=== PATIENT | male | born 1995 | race Caucasian/White ===

== ENCOUNTER 2017-10-30 14:51 | Emergency (ER) | payer BC ==
[2017-10-30 15:37] VITALS: BP 136/74
--- NOTE | 2017-10-30 15:52 | UC ---
Throat Pain/Nasal Nahid HPI - HPI Summary HPI Summary: RIGHT JAW PAIN FOR 4-5 WEEKS ALSO FEELS A SMALL BUMP LOWER RIGHT INSIDE GUM LINE - History of Current Complaint Chief Complaint: UCGeneralIllness Stated Complaint: SOFT TISSUE Time Seen by Provider: 10/30/17 15:43 Hx Obtained From: Patient Onset/Duration: Sudden Onset, Lasting Weeks Pain Intensity: 0 Pain Scale Used: 0-10 Numeric Cough: None Associated Signs & Symptoms: Positive: Negative - Allergies/Home Medications Allergies/Adverse Reactions: Allergies Allergy/AdvReac Type Severity Reaction Status Date / Time No Known Allergies Allergy Verified 10/30/17 15:32 Home Medications: Home Medications Naproxen Sodium [Aleve] 4 tab PO Q12H PRN 10/30/17 [History Confirmed 10/30/17] PMH/Surg Hx/FS Hx/Imm Hx Previously Healthy: Yes - Surgical History Surgical History: None - Family History Known Family History: Positive: Unknown - Social History Occupation: Student Lives: With Family Alcohol Use: Occasionally Substance Use Type: Marijuana Substance Use Comment - Amount & Last Used: occasionall Smoking Status (MU): Never Smoked Tobacco - Immunization History Most Recent Tetanus Shot: unsure Review of Systems Constitutional: Negative Skin: Negative Eyes: Negative ENT: Negative, Other - RIGHT LOWER GUM MOUTH PAIN Respiratory: Negative Cardiovascular: Negative Gastrointestinal: Negative Genitourinary: Negative Motor: Negative Neurovascular: Negative Musculoskeletal: Negative Neurological: Negative Psychological: Negative Is Patient Immunocompromised?: No All Other Systems Reviewed And Are Negative: Yes Physical Exam Triage Information Reviewed: Yes Appearance: Well-Appearing, No Pain Distress, Well-Nourished Vital Signs: Initial Vital Signs Temp 99.0 F 10/30/17 15:33 Pulse 81 10/30/17 15:33 Resp 18 10/30/17 15:33 BP 136/74 10/30/17 15:33 Pulse Ox 99 10/30/17 15:33 Vital Signs Reviewed: Yes Eye Exam: Normal Eyes: Positive: Conjunctiva Clear ENT Exam: Normal ENT: Positive: Normal ENT inspection, Hearing grossly normal, Pharynx normal, TMs normal, Uvula midline. Negative: Tonsillar swelling, Trismus, Muffled voice , Hoarse voice, Dental tenderness, Sinus tenderness Neck exam: Normal Neck: Positive: Supple, Nontender, No Lymphadenopathy Respiratory Exam: Normal Respiratory: Positive: Chest non-tender, Lungs clear, Normal breath sounds, No respiratory distress, No accessory muscle use Cardiovascular Exam: Normal Cardiovascular: Positive: RRR, No Murmur, Pulses Normal, Brisk Capillary Refill Musculoskeletal Exam: Normal Musculoskeletal: Positive: Strength Intact, ROM Intact, No Edema Neurological Exam: Normal Neurological: Positive: Alert, Muscle Tone Normal Psychological Exam: Normal Psychological: Positive: Normal Response To Family, Age Appropriate Behavior Skin Exam: Normal Skin: Positive: Other - SMALL ABOUT 3MM DIAMETER RAISED AREA NO FLUCTULANCE, DESCRIBED Throat Pain/Nasal Course/Dx - Course Assessment/Plan: MILD GARGLE AND MOUTH WASH, FOLLOW WITH DR. LAURENT FOR ASSESSMENT AND BIOPSY - Differential Dx/Diagnosis Provider Diagnoses: RIGHT LOWER GUM LESION Discharge - Sign-Out/Discharge Documenting (check all that apply): Discharge/Admit/Transfer - Discharge Plan Condition: Stable Disposition: HOME Referrals: Isaiah Laurent MD [Medical Doctor] - 2 Weeks Additional Instructions: The "lump" you feel in your mouth looks benign. Please follow up with Dr. Laurent , referral information is been provided, for definitive opinion. - Billing Disposition and Condition Condition: STABLE Disposition: Home
== END 2017-10-30 16:21 | disposition home or self-care (01) ==
LOC: UCEAST 14:51
DX: K13.70 Unspecified lesions of oral mucosa (principal)
CPT/HCPCS: 99211; G0463